=== PATIENT | male | born 1965 | race Caucasian/White ===

== ENCOUNTER 2025-02-09 20:35 | Emergency (ER) | payer OTHER, SELFPAY ==
[2025-02-09 20:35] VITALS: BMI 28.7
[2025-02-09 20:36] VITALS: BP 123/81
[2025-02-09 20:51] LABS: % Basophils 0.3 % (0-2); % Eosinophils 1.6 % (0-6); % Immature Granulocytes 0.4 % (0-0.5); % Lymphocytes 23.3 % (20.5-51.1); % Monocytes 9.1 % (1.7-9.3); % Neutrophils 65.3 % (42.2-75.2); Absolute Eosinophils 0.2 10^3/uL (0-0.7); Absolute Lymphocytes 2.2 10^3/uL (1.2-3.4); Absolute Monocytes 0.9 10^3/uL (0.1-0.6); Absolute Neutrophils 6.2 10^3/uL (1.4-6.5); Hematocrit 42.2 % (39.0-52.0); Hemoglobin 14.5 g/dL (13.0-18.0); Mean Corp Hgb Conc. 34.4 g/dL (33.0-37.0); Mean Corpuscular Hgb 29.5 pg (27.0-31.0); Mean Corpuscular Volume 85.9 fL (80.0-94.0); Mean Platelet Volume 9.4 fL (7.4-10.4); Nucleated Red Blood Cells % 0 % (-); Platelet Count 278 10^3/uL (130-400); Red Blood Cell Count 4.91 10^6/uL (4.70-6.10); Red Cell Dist. Width 12.7 % (11.5-14.5); White Blood Cell Count 9.5 10^3/uL (4.8-10.8)
[2025-02-09 21:06] LABS: ALT (SGPT) 31 U/L (0-50); AST (SGOT) 24 U/L (17-59); Albumin 4.1 g/dl (3.5-5.0); Alkaline Phosphatase 110 U/L (38-126); Blood Urea Nitrogen 19 mg/dl (9-20); Calcium 9.5 mg/dl (8.4-10.2); Carbon Dioxide 27 mmol/L (22-30); Chloride 106 mmol/L (98-107); Glucose 101 mg/dl (70-99); Lipase 133 U/L (23-300); Potassium 4.5 mmol/L (3.5-5.1); Sodium 141 mmol/L (135-145); Total Bilirubin 0.6 mg/dl (0.2-1.3); Total Protein 7.1 g/dl (6.3-8.2); eGFR > 60.00
[2025-02-09 22:00] VITALS: BP 115/70
[2025-02-09 22:14] VITALS: BP 115/70
[2025-02-09 23:00] VITALS: BP 110/73
[2025-02-09] MEDS: OMNIPAQUE 50 ML PO (23:05)
[2025-02-10 00:20] VITALS: BP 107/63
[2025-02-10 00:29] LABS: Urine Albumin 1+ (Neg - Trace); Urine Bilirubin Negative (Negative); Urine Character Clear (Clear); Urine Color Yellow; Urine Glucose 1+ (Negative); Urine Ketone 1+ (Negative); Urine Leukocyte 1+ (Negative); Urine Nitrite Negative (Negative); Urine Occult Blood Negative (Negative); Urine Specific Gravity 1.025 (<1.030); Urine Urobilinogen 1+ (Neg - 1+)
[2025-02-10 00:41] LABS: Urine Mucus Moderate
[2025-02-10 00:42] LABS: Urine Bacteria Moderate (Negative); Urine Red Blood Cell 0-2 /HPF (0-2); Urine Squamous Cell 0-2 /LPF (Few)
--- NOTE | 2025-02-10 01:30 | ED.GENMED ---
History of Present Illness
General
Chief Complaint: Abdominal Pain
Source: patient and spouse
Time Seen by Provider: 02/09/25 21:59
History of Present Illness
History of Present Illness:
59-year-old male who presents with left side abdominal pain has been ongoing for 5 days. Patient states he thought it was just a muscle strain because he was working the day it happened. No vomiting. No fevers. No stool changes. No urinary
symptoms. No history of diverticulosis. spouse states that his pain has persisted
Past History
Past History
ED Past Medical History: HTN and Other (Sleep apnea)
ED Past Surgical History: Urological
Social History
Tobacco: Former smoker
Alcohol: None
Drug: None
Personal:
Living: with family
Phy Exam
Physical Exam
Physical Exam:
CONSTITUTIONAL Patient alert and oriented to person, place and time. Well-appearing. Vital signs reviewed.
HEAD atraumatic, normocephalic.
EYES eyelids normal to inspection, Extraocular muscles intact, Conjunctiva normal, Sclera normal.
NECK normal range of motion, Trachea midline, no jugular venous distention.
RESPIRATORY CHEST No respiratory distress noted, Chest expansion equal, Bilateral breath sounds clear.
CARDIOVASCULAR regular rate and rhythm, Heart sounds normal.
ABDOMEN moderate left lower quadrant, Bowel sounds normal. No distention.
BACK normal inspection, no obvious deformities
UPPER EXTREMITY range of motion normal, Motor strength normal, no cyanosis, no edema.
LOWER EXTREMITY range of motion normal, Motor strength normal, no cyanosis, no edema.
NEURO Speech normal, No focal motor deficits, [place] coma scale 15, Memory normal, Cranial Nerves intact to screening exam.
SKIN skin warm, dry, and normal in color.
Course
Orders/Labs/Results
Orders:
Orders
02/09/25 20:42
Complete Blood Count/With Diff Urgent
Comprehensive Metabolic Panel Urgent
Lipase Urgent
02/09/25 22:52
Urinalysis Reflex To Culture Urgent
Date Specimen was Collected: 02/10/25
Time Specimen was Collected: 00:19
Iohexol [Omnipaque] See Protocol PO NOW STA
02/10/25 00:20
Urine Microscopic Reflex Cult Urgent
Urine Culture Urgent
[facility] Source: U
Specimen Description:
Date Specimen was Collected: 02/10/25
Time Specimen was Collected: 00:19
02/10/25 01:30
CT Abd/pel (oral only)-[facility] Only Urgent
Reason For Exam: LLQ pain, IV dye allergy
Abnormal Lab Results
02/09/25 02/10/25
20:42 00:20
Absolute Monos (auto) 0.9 H 10^3/uL
(0.1-0.6)
Glucose 101 H mg/dl
(70-99)
Urine Ketones 1+ A
(Negative)
Leukocyte Esterase Rfl 1+ A
(Negative)
Urine Bacteria (Reflex) Moderate A
(Negative)
Urine Glucose 1+ A
(Negative)
Urine Albumin (Reflex) 1+ A
(Neg - Trace)
02/09/25 20:42
02/09/25 20:42
Vital Signs
Initial and Last Documented VS:
Initial Vital Signs
Temp Pulse Resp BP Pulse Ox
98.2 F 98 16 123/81 95
02/09/25 20:36 02/09/25 20:36 02/09/25 20:36 02/09/25 20:36 02/09/25 20:36
Last Documented Vital Signs
Temp Pulse Resp BP Pulse Ox
98.2 F 80 14 107/63 94
02/09/25 20:36 02/10/25 00:41 02/10/25 00:41 02/10/25 00:20 02/10/25 00:30
MDM/Problems Addressed
Differential Diagnosis Includes:
Colitis, diverticulitis, mesenteric adenitis, kidney stone, UTI
MDM/Problems Addressed:
Acute diverticulitis
*Radiology
Radiology exam reviewed: preliminary read by ED provider (No free air) and radiology read reviewed
*Critical Care Note
Total Time (30-74mins, 75-104mins- exclusive of procedures): Not Applicable
Data Reviewed
Source: patient and spouse
Prescriptions/Medications Considered But Not Given:
Consider Augmentin but due to allergies we will treat with Flagyl and Levaquin
Patient Management
Escalation/DeEscalation of care consider admission/obs:
Patient appears well. White count okay. Afebrile. CT noted for diverticulitis which fits clinically. Does have some haziness of the mesentery noted. Will recommend him follow-up with his primary. Maybe there is dark adenitis but repeat imaging
may be necessary. Okay for outpatient
ED Attending Note
-
Portions of this chart may have been created with voice recognition software.� Occasional wrong word or��sound alike� substitutions may have occurred due to the inherent limitations of voice recognition software.
Discharge Plan
Departure
Patient Disposition: Home (Routine Discharge)
Date of Disposition: 02/10/25
Time of Disposition: 01:34
Patient with high blood pressure during this ER visit?: No
Discharge Problem:
Acute diverticulitis
Instructions: Diverticulitis (DC)
Prescriptions:
New
levofloxacin 500 mg tablet
500 mg PO DAILY 10 Days Qty: 10 0RF
metronidazole 500 mg tablet
500 mg PO TID Qty: 30 0RF
No Action
rabeprazole 20 mg tablet,delayed release (DR/EC)
20 mg PO DAILY
dextroamphetamine sulfate 15 mg capsule, extended release
15 mg PO BID@0800,1200
Patient Comments:
06/04/22 pt picked up 06/03/22 #60
amlodipine 5 mg tablet
5 mg PO DAILY
lisinopril 10 mg tablet
10 mg PO DAILY
ibuprofen 600 mg Tablet
600 mg PO Q6H PRN (Reason: mild pain)
Xyrem 500 mg/mL solution
2.5 ml PO HS
Patient Comments:
then 3 hours later takes 1.5 ml
indomethacin 50 mg capsule
50 mg PO TID Qty: 30 0RF
Referrals:
Lauren Villa MD [Family Provider] -
Activity Restrictions/Additional Instructions:
Please see your doctor in the next 3 to 5 days for follow-up and reevaluation. Please have your doctor follow-up on your CT scan results as further workup may be necessary. Return immediately for fevers, vomiting, worsening pain or any other
concerns. Please stick to a low residue diet.
Interventions
Interventions:
*Risk Screen - Suicide Last Done: 02/09/25 20:36
*General Assessment Last Done: 02/09/25 20:36
*ED COVID-19 Vaccine History Last Done: 02/09/25 20:36
[facility] Assessment Last Done: 02/09/25 22:20
Discharge Date and Time
Print Language: POLISH
[2025-02-10 01:38] VITALS: BP 120/78
[2025-02-10 01:41] VITALS: BP 120/78
[2025-02-10] MEDS: LEVAQUIN 750 MG PO (01:58)
[2025-02-10] MEDS: TORADOL 15 MG IV (01:58)
[2025-02-10] MEDS: FLAGYL 500 MG PO (01:58)
[2025-02-10] MEDS: ZOFRAN 4 MG IV (01:59)
[2025-02-10] MEDS: DILAUDID 0.5 MG IV (01:59)
== END 2025-02-10 02:45 | disposition home or self-care (01) ==
LOC: EMR 20:35
PROVIDERS: Student in an Organized Health Care Education/Training Program; EMERGENCY PHYSICIAN Emergency Medicine; FAMILY PHYSICIAN Family Medicine
DX: K57.32 Diverticulitis of large intestine without perforation or abscess without bleeding (principal); I10 Essential (primary) hypertension; G47.30 Sleep apnea, unspecified; Z87.891 Personal history of nicotine dependence
CPT/HCPCS: 96374; 96375; 99284; 74176; 80053; 81003; 81015; 83690; 85025; 87086

== ENCOUNTER 2025-08-22 20:55 | Emergency (ER) | payer OTHER, SELFPAY ==
[2025-08-22 21:01] VITALS: BP 101/66
--- NOTE | 2025-08-22 22:35 | ED.GENMED ---
History of Present Illness
General
Chief Complaint: Back Pain
Source: patient
Exam Limitations: none
Time Seen by Provider: 08/22/25 22:04
Nursing documentation reviewed up to this point in time: agreed with
History of Present Illness
History of Present Illness:
The patient is a pleasant 59-year-old man who reports that he was lifting extremely heavy rocks about a week and a half ago. Patient reports that a week ago he developed bilateral lower back pain. Patient reports that the pain seems to go down
both legs, however, he seems to have more pain in the left leg compared to the right. He reports that the pain in the legs extend down to the level of the ankles. He denies weakness and numbness of the legs. He denies bowel or bladder
incontinence. Patient reports that he has a history of a bulging disc in his lumbar spine.
Past History
Past History
ED Past Medical History: HTN and Other (Sleep apnea)
ED Past Surgical History: Urological
Social History
Tobacco: Former smoker
Alcohol: None
Drug: None
Personal:
Living: with family
Employment: Employed
Family History
Family History: Other
Review of Systems
Review of Systems
Allergies reviewed?: Yes
All Other Systems: ROS reviewed and negative except as documented in HPI and ROS
Constitutional: Reports no symptoms
EENT: Reports no symptoms
Respiratory: Reports no symptoms
Cardiac: Reports no symptoms
ABD/GI: Reports no symptoms
: Reports no symptoms
Musculoskeletal: Reports back pain
Skin: Reports no symptoms
Neurological: Reports no symptoms
Endocrine: Reports no symptoms
Hematologic/Lymphatic: Reports no symptoms
Psychiatric: Reports no symptoms
Phy Exam
Physical Exam
Physical Exam:
Physical Exam
General: no apparent distress, not acutely ill
Neck: supple. no meningeal signs. normal psoterior pharynx
Heart: s1/s2 regular rate and rhythm, no murmur. equal radial and femoral pulses bilaterally.
Lungs: no acute respiratory distress. clear bilaterally
Abdomen: normal bowel sounds. not tender. no CVAT. Reproducible soft tissue tenderness bilateral lumbar spine area. No specific bony tenderness of lumbar spine
Neuro: alert and oriented. no focal neurological deficits. No saddle anesthesia. 5 out of 5 strength in upper and lower extremities. Normal reflexes in lower extremities bilaterally
Skin: no rash
Psychiatric: well kept. interactive and cooperative
Extremities: no edema. no calf tenderness. negative homans. good distal pulses
Course
Orders/Labs/Results
Orders:
Orders
08/22/25 22:29
Lumbar Spine Complete, 4 View [CR Lumbar Spine Comp Min 4 Vw*] Urgent
Comment:
Reason For Exam: back pain, pain radiating down L leg
08/22/25 22:30
Ibuprofen [Motrin] 600 mg PO NOW STA
Oxycodone [Roxicodone] 5 mg PO NOW STA
08/22/25 22:31
Prednisone [Deltasone] 40 mg PO NOW STA
08/22/25 23:59
Diazepam [Valium] 5 mg PO NOW STA
Vital Signs
Initial and Last Documented VS:
Initial Vital Signs
Temp Pulse Resp BP Pulse Ox
97.7 F 98 18 101/66 98
08/22/25 21:01 08/22/25 21:01 08/22/25 21:01 08/22/25 21:01 08/22/25 21:01
Last Documented Vital Signs
Temp Pulse Resp BP Pulse Ox
97.7 F 98 18 101/66 98
08/22/25 21:01 08/22/25 21:01 08/22/25 21:01 08/22/25 21:01 08/22/25 22:36
MDM/Problems Addressed
Differential Diagnosis Includes:
Muscle spasm of back, lumbar radiculopathy
MDM/Problems Addressed:
Patient presents with acute back pain
Chronic conditions affecting care:
History of herniated disc of lumbar spine
Acute Exacerbation and/or Progression of Chronic Illness:
Patient may have acute exacerbation of herniated disc of lumbar spine causing acute pain
*Radiology
Radiology exam reviewed: preliminary read by ED provider (No acute fracture) and radiology read reviewed
*Pulse Oximetry
SaO2: 98
Oxygen Mode of Delivery: Room air
Patient hypoxic: no
*EKG
Interpreted by ED Provider?: NA
*Winemaker Interpretation
Rate: Winemaker- N/A
*Critical Care Note
Total Time (30-74mins, 75-104mins- exclusive of procedures): Not Applicable
Data Reviewed
Review of Other/Old Records Reveals: Labs (Labs reviewed from February 2025 which show normal creatinine)
Source: patient
Patient Management
Social determinants of health affecting care: Living situation and Strong social support
Escalation/DeEscalation of care consider admission/obs:
Patient's pain is improved. He has excellent strength and sensation in his lower extremities and there is no sign of cauda equina. Patient instructed to follow-up with his primary care doctor within 1 week. Patient will be given steroids and
encouraged to take Motrin. If pain becomes severe, patient instructed to take Valium but to avoid alcohol and driving while using Valium
ED Attending Note
-
Portions of this chart may have been created with voice recognition software.� Occasional wrong word or��sound alike� substitutions may have occurred due to the inherent limitations of voice recognition software.
Discharge Plan
Departure
Patient Disposition: Home (Routine Discharge)
Date of Disposition: 08/23/25
Time of Disposition: 00:37
Patient with high blood pressure during this ER visit?: No
Condition: Good
Covid-19: Not Applicable
Discharge Problem:
Back pain
Instructions: Low Back Pain (DC), Sciatica (DC)
Prescriptions:
New
diazepam [Valium] 5 mg tablet
5 mg PO BID PRN (Reason: muscle spasm) Qty: 7 0RF
prednisone 20 mg tablet
20 mg PO DAILY Qty: 7 0RF
Rx Instructions:
Take 40 mg on day 1 and day 2
Take 20 mg on day 3, day 4, and day 5
No Action
rabeprazole 20 mg tablet,delayed release (DR/EC)
20 mg PO DAILY
dextroamphetamine sulfate 15 mg capsule, extended release
15 mg PO BID@0800,1200
Patient Comments:
06/04/22 pt picked up 06/03/22 #60
amlodipine 5 mg tablet
5 mg PO DAILY
lisinopril 10 mg tablet
10 mg PO DAILY
ibuprofen 600 mg Tablet
600 mg PO Q6H PRN (Reason: mild pain)
Xyrem 500 mg/mL solution
2.5 ml PO HS
Patient Comments:
then 3 hours later takes 1.5 ml
indomethacin 50 mg capsule
50 mg PO TID Qty: 30 0RF
levofloxacin 500 mg tablet
500 mg PO DAILY 10 Days Qty: 10 0RF
metronidazole 500 mg tablet
500 mg PO TID Qty: 30 0RF
Referrals:
Lauren Villa MD [Family Provider, Family Practice]
Activity Restrictions/Additional Instructions:
Follow-up with your primary care doctor within 1 week. Return with any weakness or numbness of the legs.
Take 600 mg of Motrin/Advil with food every 6-8 hours. If the pain becomes severe, you could also take a Valium. However, do not drive or drink alcohol with the Valium.
Interventions
Interventions:
*Risk Screen - Suicide Last Done: 08/22/25 21:01
*General Assessment Last Done: 08/22/25 21:01
*Neglect/Abuse Screening Last Done: 08/22/25 21:01
*ED- Fall Risk Assessment Last Done: 08/22/25 21:38
*ED COVID-19 Vaccine History Last Done: 08/22/25 21:01
*ED Influenza Vaccine History Last Done: 08/22/25 21:01
ED-Musculoskeletal Assessment Last Done: 08/22/25 21:38
Discharge Date and Time
Print Language: SERBIAN
[2025-08-22] MEDS: ROXICODONE 5 MG PO (22:38)
[2025-08-22] MEDS: MOTRIN 600 MG PO (22:38)
[2025-08-22] MEDS: DELTASONE 40 MG PO (22:38)
[2025-08-22 22:39] VITALS: BMI 27.6
[2025-08-23] VITALS: BP 112/68
[2025-08-23] MEDS: VALIUM 5 MG PO (00:05)
[2025-08-23 01:00] VITALS: BP 112/68
== END 2025-08-23 01:00 | disposition home or self-care (01) ==
LOC: EMR 20:55
PROVIDERS: EMERGENCY PHYSICIAN Emergency Medicine; FAMILY PHYSICIAN Family Medicine
DX: M54.50 Low back pain, unspecified (principal); I10 Essential (primary) hypertension; G47.30 Sleep apnea, unspecified; Z87.891 Personal history of nicotine dependence
CPT/HCPCS: 99283; 72110